=== PATIENT | female | born 1985 | race African-American/Black ===

== ENCOUNTER → 2016-12-31 | Outpatient (CLI) | payer OTHER ==
[~2016-12-31] MED LIST: ACETAMINOPHEN PO; ATARAX25 MG PO; ATIVAN0.5 MG PO; ATIVAN1 MG PO; CIPROFLOXACIN500 MG PO; DAYPRO600 M1 PO; DIPHENHYDRAMINE25 MG PO; DOXYCYCLINE100 MG PO; DURAGESIC25 MCG/HR TD; Duragesic 25 M25 MCG T; Duragesic 50 M50 MCG T; ELIMITE 5%60 GM T; FLEXERIL5 MG PO; HYDROCODONE BIT1 T11 PO; IBU-6600 MG PO; IBU800 MG PO; IBUPROFEN600 MG PO; KEFLEX500 MG PO; LEVOFLOXACIN500 MG PO; MACROBID100 M1 PO; MEDROL DOSEPAK4 MG PO; METHADONE5 MG PO; MIDRIN (DURADR1 CAP PO; MOBIC7.5 MG PO; MOTRIN600 MG PO; MOTRIN800 MG PO; Motrin,Rufen800 MG PO; OXYCODONE HCL5 MG PO; OXYCODONE5 M1 PO; OXYCONTIN10 MG PO; PERI-COLACE 501 TAB PO; PREDNISONE10 MG PO; PREDNISONE5 MG PO; PROAIR HFA8.5 GM IH; PROAIR RESPICL90 MCG PO; Phenergan25 MG PO; ROBAXIN750 MG PO; ROBITUSSIN AC 110 ML PO; ROXICODONE15 MG PO; SEROQUEL25 MG PO; SEROQUEL50 MG PO; VISTARIL25 M1 PO; ZITHROMAX250 MG PO; ZOFRAN4 MG PO; ZOLOFT50 MG PO; Zofran4 MG PO; [UNRECOGNIZED DRUG - OTHER] PO
== END ==
LOC: RAD 19:12
DX: R05 Cough (principal); J98.11 Atelectasis; R09.89 Other specified symptoms and signs involving the circulatory and respiratory systems

== ENCOUNTER 2017-07-11 18:41 | Inpatient (IN) | payer OTHER ==
[~2017-07-11] VITALS: Ht 170.1 cm; Wt 67.6 kg
--- NOTE | ~2017-07-11 | O ---
[place], [place] OPERATIVE NOTE NAME: KYLAH SCHWARTZ [facility] #: [id number] UNIT #: [id number] ROOM: 416 DOCTOR: DAVID RYAN MD BIRTHDATE: [birth year] DOS: 07/12/2017 PREOPERATIVE DIAGNOSIS: Acute appendicitis. POSTOPERATIVE DIAGNOSIS: Acute appendicitis. PROCEDURE: Laparoscopic appendectomy. SURGEON: David Ryan MD PUSH CONNECTOR ASSEMBLER: FRANCISCO. ANESTHESIA: GET. INDICATIONS: This is a 31-year-old -Stateless lady who was admitted with right lower quadrant abdominal pain and a CAT scan that revealed acute appendicitis. It was decided to take the patient to the operating room for the above-mentioned procedure. The procedure and its complications were explained to the patient in detail preoperatively. Complications that were discussed included, but were not limited to bleeding, infection, hematoma/seroma/abscess formation, formation, prolonged postoperative pain, damage vital structures and incisional hernia formation. She agreed to proceed. DESCRIPTION OF PROCEDURE: After identifying the patient, the patient was brought to the operating suite and laid in the supine position. After time-out procedure was called, general anesthesia was administered and the parts were then painted and draped in the usual sterile fashion. Prior to painting and draping, a Scott catheter was inserted into the urinary bladder and the left upper extremity was stuck to the patient's side. Thereafter, an incision was made below the umbilicus in a transverse fashion. The skin and the subcutaneous tissue were incised. The fascia was incised and 2 stay sutures were taken on either side. The peritoneum was opened and a 12-mm Juan David port was introduced into the peritoneal cavity. A pneumoperitoneum was created. Under direct vision, a left lower quadrant incision of 10 mm and suprapubic incision of 5 mm was made and appropriate size ports were introduced into the peritoneal cavity. The patient was placed in a Trendelenburg, right side up position. The appendix was found to be acute inflamed and attached with inflammatory adhesions to the distal ileum and also to the right fallopian tube as well as the right side of the uterine ligament. The appendix was carefully dissected away from the structures and after the base was identified, it was stapled across with the help of an Endo-ESTEBAN stapler. It was then placed in an Endo-ESTEBAN bag and removed from the peritoneal cavity and sent for histopathological diagnosis. Thereafter, hemostasis was confirmed and sheath of intercede was placed for hemostasis as well as to decrease the possibility of adhesions in the future. A note should be made that at this point, I also had Dr. Golden Perez from [employer] coming in order for him to look at the pelvic anatomy and make sure that the uterine ligament, the right lobe and pelvic female pelvic structures were within normal limits. After hemostasis was confirmed again, the suprapubic and the left lower quadrant ports were removed and there was no bleeding seen. The umbilical port was removed and pneumoperitoneum was decompressed. Thereafter, [place], [place] OPERATIVE NOTE NAME: KYLAH SCHWARTZ UNIT #: [id number] ROOM: [facility] DOCTOR: DAVID RYAN MD BIRTHDATE: [birth year] the fascial defect was approximated with the help of 0 Vicryl in a [id number] fashion and the stay sutures were tied together as well. The skin edges were infiltrated with 1% plain lidocaine and approximated with the help of 4-0 Vicryl in a subcuticular running fashion. Dressings were placed in all the four incisions. The patient tolerated the procedure well. Blood loss was less than 100 mL. She was extubated uneventfully and the Scott catheter was removed as well in the operating room. She was then taken to the recovery room in stable fashion. There were no complications. Dr. David Ryan, the attending surgeon, was present throughout the operating case. David Ryan MD CM:OPRECORD:OPERATIVE NOTE [id number] DAVID RYAN MD 07/12/17 1110 interface
[2017-07-11 18:52] VITALS: BP 119/78
[2017-07-11 19:14] LABS: BILIRUBIN NEGATIVE (NEGATIVE); BLOOD 3+ (NEGATIVE); CLARITY CLEAR (CLEAR); COLOR YELLOW (YELLOW); GLUCOSE NEGATIVE (NEGATIVE); KETONE NEGATIVE (NEGATIVE); LEUKO ESTERASE NEGATIVE (NEGATIVE); NITRITE NEGATIVE (NEGATIVE); SPECIFIC GRAVITY <= 1.005 (1.005-1.030)
[2017-07-11 19:24] LABS: BACTERIA TRACE; RBC 31-40 rbc/hpf (0-2)
[2017-07-11 19:49] LABS: BASO % 0.3 % (0.0-1.0); EOS # 0.2 10*3/uL (0.0-0.4); EOS % 1.4 % (1.0-4.0); HEMATOCRIT 40.4 % (37.0-47.0); HEMOGLOBIN 13.7 g/dl (12.0-16.0); LYMPH # 2.6 10*3/uL (1.3-4.4); LYMPH % 18.8 % (27.0-41.0); MEAN CELL VOLUME 91.4 fl (81.0-99.0); MEAN CORPUSCULAR HGB CONC 33.9 g/dl (33.0-37.0); MEAN PLATELET VOLUME 10.6 fl (9.6-12.3); MONO # 0.8 10*3/uL (0.1-1.0); MONO % 5.5 % (3.0-9.0); NEUT # 10.4 10*3/uL (2.3-7.9); NEUT % 73.7 % (47.0-73.0); PLATELET COUNT AUTOMATED 293 10*3/uL (130-400); RED BLOOD COUNT 4.42 10*6/uL (4.10-5.10); RED CELL DISTRI WIDTH 12.1 % (0-14.5); WHITE BLOOD COUNT 14.1 10*3/uL (4.8-10.8)
[2017-07-11 20:06] LABS: ALBUMIN 3.6 gm/dl (3.1-4.5); ALKALINE PHOSPHATASE 117 U/L (45-117); BUN 6 mg/dl (7-24); CHLORIDE 103 mmol/L (98-107); CREATININE 0.87 mg/dL (0.55-1.02); LIPASE 78 U/L (73-393); MAGNESIUM 2.4 mg/dL (1.5-2.1); POTASSIUM 3.7 mmol/L (3.5-5.1); SGOT/AST 19 IU/L (3-35); SGPT/ALT 13 U/L (12-78); SODIUM 135 mmol/L (136-145); TOTAL PROTEIN 8.9 gm/dL (6.4-8.2)
[2017-07-11 20:07] LABS: TROPONIN I < 0.015 ng/ml (<0.045)
--- NOTE | 2017-07-11 20:26 | NUR ---
PT POSITIONED FOR COMFORT AWAITING ALL RESULTS FOR ADDITIONAL PLAN OF CARE,SAFETY PRECAUTIONS INTACT AND CALL LIGHT WITHIN REACH.
--- NOTE | 2017-07-11 20:51 | NUR ---
MILD PAIN RELIEF WITH TORADOL.
--- NOTE | 2017-07-11 21:50 | NUR ---
PT STATING PAIN @ AN 8 ON 1-10 SCALE PRIOR TO MORPHINE ADMINISTRATION.
[2017-07-11 21:55] VITALS: BP 116/76
--- NOTE | 2017-07-11 22:03 | NUR ---
PT WITH REDNESS AND MILD EDEMA NOTED ABOVE IV SITE WHERE MORPHINE ADMINISTERED AND IV ROCEPHIN INFUSING,PT DENIES ITCHING/BURNING RESPIRATORY DIFFICULTIES, IV SITE FLUSHED AND ROCEPHIN STOPPED TEMPORARILY @ THIS TIME UNTIL REEVAL OF SITE PER BENNIE SEGURA PA-C. PAIN RELIEF NOTED WITH MORPHINE.
--- NOTE | 2017-07-11 23:20 | NUR ---
ALL S/S LFT IV SITE RESOLVED WITH ROCEPHIN COMPLETED CHARTED.
--- NOTE | 2017-07-11 23:48 | NUR ---
A 31, admitted to , under the services of SAADIA Forbes DO with a diagnosis of SEPSIS, AC APPENDICITIS, PNEUMONITIS. Chief complaint is RLQ ABD PAIN, COUGH. Patient arrived via ambulatory from ER. Monitor applied. Initial assessment completed. Vital signs taken and recorded. SAADIA FORBES DO notified of admission to the unit. Orders received. See assessment for past medical history, medications and allergies. Patient and/or family oriented to unit. [facility] reviewed. Clothing/patient valuable form completed. JOSE ANGEL VIRGEN
[2017-07-12] VITALS (11 sets, daily range): BP systolic 86–132; BP diastolic 40–85
--- NOTE | 2017-07-12 | NUR ---
DR. HANEY NOTIFIED OF NEW CONSULT. ORDER GIVEN FOR NPO. HE WILL SEE PT IN AM.
[2017-07-12] MEDS ORDERED: LYRICA50 M1 PO (00:07)
[2017-07-12] MEDS ORDERED: CYMBALTA20 M1 PO (00:08)
--- NOTE | 2017-07-12 00:15 | NUR ---
DR. CALLES NOTIFIED OF PT ADMISSION TO FLOOR AND MED LIST UPDATED. N.O. RCVD FOR MORPHINE IVP 4MG EVERY 2 HOURS PRN ABD PAIN, NS BOLUS, NS @ 125MLHR.
--- NOTE | 2017-07-12 02:00 | NUR ---
PRN MORPHINE EFFECTIVE FOR PAIN RELIEF. PT RESTING QUIETLY IN BED AT THIS TIME.
[2017-07-12 05:54] LABS: BASO % 0.3 % (0.0-1.0); EOS # 0.3 10*3/uL (0.0-0.4); EOS % 2.6 % (1.0-4.0); HEMATOCRIT 36.9 % (37.0-47.0); HEMOGLOBIN 12.6 g/dl (12.0-16.0); LYMPH # 1.8 10*3/uL (1.3-4.4); MEAN CELL VOLUME 92.5 fl (81.0-99.0); MEAN CORPUSCULAR HGB 31.6 pg (27.0-31.0); MEAN CORPUSCULAR HGB CONC 34.1 g/dl (33.0-37.0); MEAN PLATELET VOLUME 10.5 fl (9.6-12.3); MONO % 8.8 % (3.0-9.0); NEUT # 8.2 10*3/uL (2.3-7.9); PLATELET COUNT AUTOMATED 241 10*3/uL (130-400); RED BLOOD COUNT 3.99 10*6/uL (4.10-5.10); RED CELL DISTRI WIDTH 12.2 % (0-14.5); WHITE BLOOD COUNT 11.3 10*3/uL (4.8-10.8)
[2017-07-12 06:06] LABS: ALBUMIN 2.7 gm/dl (3.1-4.5); ALKALINE PHOSPHATASE 85 U/L (45-117); BUN 6 mg/dl (7-24); CHLORIDE 109 mmol/L (98-107); CHOLESTEROL 110 mg/dL (<200); CREATININE 0.84 mg/dL (0.55-1.02); FREE T4 1.15 ng/dl (0.76-1.46); HDL CHOLESTEROL 35 mg/dl (40-60); LDL CHOLESTEROL 53 mg/dL (9-159); MAGNESIUM 2.1 mg/dL (1.5-2.1); PHOSPHOROUS 3.6 mg/dL (2.5-4.9); POTASSIUM 3.9 mmol/L (3.5-5.1); SGOT/AST 14 IU/L (3-35); SGPT/ALT 8 U/L (12-78); SODIUM 140 mmol/L (136-145); TOTAL PROTEIN 6.6 gm/dL (6.4-8.2); TRIGLYCERIDES 110 mg/dl (<150); VLDL CHOLESTEROL 22 mg/dL (6-40)
[2017-07-12 06:18] LABS: ACT PARTIAL THROMBO TIME 28.9 SECONDS (20.8-31.5)
--- NOTE | 2017-07-12 08:30 | NUR ---
Monogram Technician in to talk to patient. Patient states lives at [address] with HER FIANCE. There are 15 steps in the home. Physician: ORESTES HERNANDEZ Pharmacy: [facility] Home health services: NONE Patient's level of ADLs: INDEPENDENT Patient has working utilities: YES DME: NONE Follow-up physician's appointment after d/c: WILL BE MADE PRIOR TO DC Does patient want to access PORTAL?: Discharge plan HOME. LEYLA VALDEZ
--- NOTE | 2017-07-12 10:35 | NUR ---
PT. C/O ABD PAIN/DISCOMFORT REQUESTING SOMETHING FOR PAIN. PT. RECIEVED FENTANYL 50 MCG IV FOR PAIN AND REGLAN 10 MG IV FOR NAUSEA PER . ORDERS WILL CONTINUE TO MONITOR PT.
--- NOTE | 2017-07-12 10:42 | NUR ---
PT. STILL C/O ABD PAIN/DISCOMFORTING RATING 10/10 ON PAIN SCALE. PT. RECIEVED SECOND DOSE OF FENTANYL 50 MCG IV FOR PAIN. PT.'S VITAL SIGNS REMAIN STABLE. WILL CONTINUE TO MONITOR PT.
--- NOTE | 2017-07-12 12:44 | NUR ---
MEDICATED WITH ONE TAB VICODIN FOR COMPLAINTS OF ABDOMINAL PAIN. RATES PAIN A 10 ON A PAIN SCALE OF 1-10.
--- NOTE | 2017-07-12 13:49 | NUR ---
VOICES PAIN MED WAS EFFECTIVE.
--- NOTE | 2017-07-12 16:52 | NUR ---
MEDICATED WITH NORCO ORDERED FOR COMPLAINTS OF ABDOMINAL PAIN. RATES PAIN A 10 ON A PAIN SCALE OF 1-10.
--- NOTE | 2017-07-12 17:38 | NUR ---
MEDICATED WITH ZOFRAN FOR COMPLAINTS OF NAUSEA. RATES PAIN A 7 ON A PAIN SCALE OF 1-10.
--- NOTE | 2017-07-12 20:54 | NUR ---
DR. ROUSSEAU NOTIFIED OF PT REQUEST FOR TORADOL. DR. MENA PUT IN ORDER FOR TORADOL.
--- NOTE | 2017-07-12 22:00 | NUR ---
PT STATES THAT TORADOL WAS SOMEWHAT EFFECTIVE FOR PAIN RELIEF. PT ADVISED THAT IT WAS A ONE TIME ORDER AND PT TEACHING GIVEN. PT VERBALIZES UNDERSTANDING.
[2017-07-13] VITALS: BP 108/56
--- NOTE | 2017-07-13 00:30 | NUR ---
PT RESTING QUIETLY IN BED WITH EYES CLOSED. PRN NORCO EFFECTIVE FOR PAIN RELIEF. NO S/S OF DISTRESS NOTED.
--- NOTE | 2017-07-13 05:01 | NUR ---
24 HR chart check completed.
--- NOTE | 2017-07-13 06:30 | NUR ---
PT REFUSED LABS THIS AM.
[2017-07-13 08:00] VITALS: BP 100/60
[2017-07-13] MEDS ORDERED: VITAMIN D-32000 UNI1 PO (09:08)
[2017-07-13] MEDS ORDERED: B12,B-12,B 12500 MC1 PO (09:08)
[2017-07-13] MEDS ORDERED: Motrin,Rufen800 MG PO (09:10)
--- NOTE | 2017-07-13 10:39 | NUR ---
Discharge instructions reviewed with patient/family. Patient receptive and verbalizes understanding. Follow-up care arranged. Written instructions given to patient/family. TOM PULIDO
== END 2017-07-13 10:35 | disposition home or self-care (01) | DRG 853 ==
LOC: ED 18:41 → EDHOLD 22:57 → 4E 22:57
PROVIDERS: Hospitalist; Physician Assistant; ADMIT Internal Medicine
PROC: 0DTJ4ZZ Resection of Appendix, Percutaneous Endoscopic Approach (ICD-10-PCS; principal; 2017-07-12)
DX: A41.9 Sepsis, unspecified organism (principal); J18.9 Pneumonia, unspecified organism; E43 Unspecified severe protein-calorie malnutrition; K35.80 Unspecified acute appendicitis; N39.0 Urinary tract infection, site not specified; J45.909 Unspecified asthma, uncomplicated; R65.20 Severe sepsis without septic shock; F41.9 Anxiety disorder, unspecified; E55.9 Vitamin D deficiency, unspecified; E53.8 Deficiency of other specified B group vitamins; Z85.72 Personal history of non-Hodgkin lymphomas; Z72.0 Tobacco use; Z68.23 Body mass index [BMI] 23.0-23.9, adult; Z80.8 Family history of malignant neoplasm of other organs or systems; Z83.3 Family history of diabetes mellitus; Z82.49 Family history of ischemic heart disease and other diseases of the circulatory system; Z79.899 Other long term (current) drug therapy

== ENCOUNTER → 2017-07-19 | Outpatient (CLI) | payer OTHER ==
[~2017-07-19] MED LIST changes: +B12,B-12,B 12500 MC1 PO; +CYMBALTA20 M1 PO; +LYRICA50 M1 PO; +VITAMIN D-32000 UNI1 PO
== END | disposition home or self-care (01) ==
LOC: RAD 13:22
DX: K59.00 Constipation, unspecified (principal); R31.9 Hematuria, unspecified; R10.31 Right lower quadrant pain; R10.32 Left lower quadrant pain; R11.0 Nausea

== ENCOUNTER 2017-08-11 15:57 | Emergency (ER) | payer OTHER ==
[~2017-08-11] VITALS: Ht 170.1 cm; Wt 65.3 kg
[2017-08-11 16:47] LABS: BASO % 0.5 % (0.0-1.0); EOS # 0.1 10*3/uL (0.0-0.4); EOS % 1.2 % (1.0-4.0); HEMATOCRIT 39.5 % (37.0-47.0); LYMPH # 2.1 10*3/uL (1.3-4.4); LYMPH % 25.5 % (27.0-41.0); MEAN CELL VOLUME 90.8 fl (81.0-99.0); MEAN CORPUSCULAR HGB 29.9 pg (27.0-31.0); MEAN CORPUSCULAR HGB CONC 32.9 g/dl (33.0-37.0); MEAN PLATELET VOLUME 10.4 fl (9.6-12.3); MONO # 0.4 10*3/uL (0.1-1.0); MONO % 4.5 % (3.0-9.0); NEUT # 5.6 10*3/uL (2.3-7.9); NEUT % 68.1 % (47.0-73.0); PLATELET COUNT AUTOMATED 259 10*3/uL (130-400); RED BLOOD COUNT 4.35 10*6/uL (4.10-5.10); RED CELL DISTRI WIDTH 13.5 % (0-14.5); WHITE BLOOD COUNT 8.2 10*3/uL (4.8-10.8)
[2017-08-11 17:03] LABS: ALBUMIN 3.9 gm/dl (3.1-4.5); ALKALINE PHOSPHATASE 131 U/L (45-117); BUN 9 mg/dl (7-24); CHLORIDE 106 mmol/L (98-107); CREATININE 0.79 mg/dL (0.55-1.02); POTASSIUM 4.1 mmol/L (3.5-5.1); SGOT/AST 11 IU/L (3-35); SGPT/ALT 13 U/L (12-78); SODIUM 137 mmol/L (136-145); TOTAL PROTEIN 8.4 gm/dL (6.4-8.2)
[2017-08-11] MEDS ORDERED: ZITHROMAX250 MG PO (17:37)
[2017-08-11] MEDS ORDERED: DELTASONE20 M1 PO (17:37)
[2017-08-11] MEDS ORDERED: VENTOLIN 02.5 MG/3 M INH (17:37)
== END 2017-08-11 17:46 | disposition home or self-care (01) ==
LOC: ED 15:57
PROVIDERS: Physician Assistant
DX: J40 Bronchitis, not specified as acute or chronic (principal); F17.200 Nicotine dependence, unspecified, uncomplicated; Z79.899 Other long term (current) drug therapy

== ENCOUNTER 2018-09-07 19:58 | Emergency (ER) | payer OTHER ==
[~2018-09-07] VITALS: Ht 170.1 cm; Wt 68.0 kg
[~2018-09-07 19:58] MED LIST changes: +DELTASONE20 M1 PO; +VENTOLIN 02.5 MG/3 M INH
[2018-09-07] MEDS ORDERED: CYMBALTA20 M1 PO (20:10)
[2018-09-07 20:26] LABS: BASO % 0.3 % (0.0-1.0); EOS # 0.2 10*3/uL (0.0-0.4); HEMATOCRIT 43.3 % (37.0-47.0); HEMOGLOBIN 14.9 g/dl (12.0-16.0); LYMPH # 2.5 10*3/uL (1.3-4.4); LYMPH % 25.8 % (27.0-41.0); MEAN CELL VOLUME 92.1 fl (81.0-99.0); MEAN CORPUSCULAR HGB 31.7 pg (27.0-31.0); MEAN CORPUSCULAR HGB CONC 34.4 g/dl (33.0-37.0); MEAN PLATELET VOLUME 10.1 fl (9.6-12.3); MONO # 0.4 10*3/uL (0.1-1.0); MONO % 4.4 % (3.0-9.0); NEUT # 6.5 10*3/uL (2.3-7.9); NEUT % 67.3 % (47.0-73.0); PLATELET COUNT AUTOMATED 234 10*3/uL (130-400); RED CELL DISTRI WIDTH 11.9 % (0-14.5); WHITE BLOOD COUNT 9.7 10*3/uL (4.8-10.8)
[2018-09-07 20:37] LABS: BILIRUBIN NEGATIVE (NEGATIVE); BLOOD 3+ (NEGATIVE); CLARITY SL CLOUDY (CLEAR); COLOR YELLOW (YELLOW); GLUCOSE NEGATIVE (NEGATIVE); KETONE NEGATIVE (NEGATIVE); LEUKO ESTERASE 1+ (NEGATIVE); NITRITE NEGATIVE (NEGATIVE); SPECIFIC GRAVITY 1.025 (1.005-1.030); UROBILINOGEN 0.2 E.U./dl (0.2-1.0)
[2018-09-07 20:42] LABS: ALBUMIN 3.8 gm/dl (3.1-4.5); ALKALINE PHOSPHATASE 119 U/L (45-117); BUN 6 mg/dl (7-24); CHLORIDE 106 mmol/L (98-107); CREATININE 0.82 mg/dL (0.55-1.02); POTASSIUM 4.1 mmol/L (3.5-5.1); SGOT/AST 12 IU/L (3-35); SGPT/ALT 16 U/L (12-78); SODIUM 138 mmol/L (136-145); TOTAL PROTEIN 7.6 gm/dL (6.4-8.2)
[2018-09-07 21:00] LABS: BACTERIA 2+; EPITHELIAL CELLS 31-40; RBC 21-30 rbc/hpf (0-2)
== END 2018-09-07 22:00 | disposition left against medical advice (07) ==
LOC: ED 19:58
PROVIDERS: Student in an Organized Health Care Education/Training Program
DX: N39.0 Urinary tract infection, site not specified (principal); F17.200 Nicotine dependence, unspecified, uncomplicated; Z79.899 Other long term (current) drug therapy

== ENCOUNTER → 2019-02-15 | Outpatient (CLI) | payer OTHER ==
[~2019-02-15] MED LIST changes: +CEFUROXIME AXE500 MG PO; +NAPROSYN500 MG PO
== END | disposition home or self-care (01) ==
LOC: MRI 07:50
DX: S93.492A Sprain of other ligament of left ankle, initial encounter (principal); X58.XXXA Exposure to other specified factors, initial encounter; Y93.89 Activity, other specified; Y92.89 Other specified places as the place of occurrence of the external cause; Y99.8 Other external cause status

== ENCOUNTER → 2019-09-29 | Outpatient (CLI) | payer OTHER ==
[2019-09-29 21:00] LABS: BASO % 0.2 % (0.0-1.0); EOS # 0.2 10*3/uL (0.0-0.4); EOS % 2.4 % (1.0-4.0); HEMOGLOBIN 13.6 g/dl (12.0-16.0); LYMPH # 3.1 10*3/uL (1.3-4.4); LYMPH % 31.5 % (27.0-41.0); MEAN CELL VOLUME 92.8 fl (81.0-99.0); MEAN CORPUSCULAR HGB 30.8 pg (27.0-31.0); MEAN CORPUSCULAR HGB CONC 33.2 g/dl (33.0-37.0); MEAN PLATELET VOLUME 10.7 fl (9.6-12.3); MONO # 0.5 10*3/uL (0.1-1.0); MONO % 5.3 % (3.0-9.0); NEUT # 5.9 10*3/uL (2.3-7.9); NEUT % 60.3 % (47.0-73.0); PLATELET COUNT AUTOMATED 244 10*3/uL (130-400); RED BLOOD COUNT 4.42 10*6/uL (4.10-5.10); RED CELL DISTRI WIDTH 12.6 % (0-14.5); WHITE BLOOD COUNT 9.8 10*3/uL (4.8-10.8)
[2019-09-29 21:16] LABS: ALBUMIN 3.6 gm/dl (3.1-4.5); ALKALINE PHOSPHATASE 117 U/L (45-117); BUN 6 mg/dl (7-24); CHLORIDE 108 mmol/L (98-107); CREATININE 1.03 mg/dL (0.55-1.02); POTASSIUM 3.6 mmol/L (3.5-5.1); SGOT/AST 28 IU/L (3-35); SGPT/ALT 25 U/L (12-78); SODIUM 139 mmol/L (136-145); TOTAL PROTEIN 7.6 gm/dL (6.4-8.2)
== END | disposition home or self-care (01) ==
LOC: LAB 20:40
PROVIDERS: Internal Medicine Hematology & Oncology
DX: C81.90 Hodgkin lymphoma, unspecified, unspecified site (principal); J98.4 Other disorders of lung

== ENCOUNTER → 2019-12-21 | Outpatient (CLI) | payer OTHER | END | disposition home or self-care (01) | LOC: LAB 15:58 | DX: D72.820 Lymphocytosis (symptomatic) (principal) ==

== ENCOUNTER → 2019-12-28 | Outpatient (CLI) | payer OTHER | END | disposition home or self-care (01) | LOC: RESCLI 15:39 → COVID19 15:39 | DX: R05 Cough (principal); R06.00 Dyspnea, unspecified; R07.9 Chest pain, unspecified ==

== ENCOUNTER 2020-03-14 11:40 | Observation (INO) | payer OTHER ==
[~2020-03-14] VITALS: Ht 175.2 cm; Wt 78.0 kg
[2020-03-14 11:46] VITALS: BP 135/86
[2020-03-14 12:55] LABS: BASO % 0.3 % (0.0-1.0); EOS % 0.3 % (1.0-4.0); HEMATOCRIT 41.1 % (37.0-47.0); LYMPH # 1.6 10*3/uL (1.3-4.4); MEAN CELL VOLUME 90.1 fl (81.0-99.0); MEAN CORPUSCULAR HGB 30.3 pg (27.0-31.0); MEAN CORPUSCULAR HGB CONC 33.6 g/dl (33.0-37.0); MEAN PLATELET VOLUME 10.6 fl (9.6-12.3); MONO # 0.4 10*3/uL (0.1-1.0); MONO % 3.3 % (3.0-9.0); NEUT # 8.6 10*3/uL (2.3-7.9); NEUT % 80.8 % (47.0-73.0); PLATELET COUNT AUTOMATED 235 10*3/uL (130-400); RED BLOOD COUNT 4.56 10*6/uL (4.10-5.10); RED CELL DISTRI WIDTH 12.7 % (0-14.5); WHITE BLOOD COUNT 10.6 10*3/uL (4.8-10.8)
[2020-03-14 13:45] LABS: ALBUMIN 3.4 gm/dl (3.1-4.5); ALKALINE PHOSPHATASE 113 U/L (45-117); BUN 10 mg/dl (7-24); CHLORIDE 107 mmol/L (98-107); LIPASE 154 U/L (73-393); POTASSIUM 3.8 mmol/L (3.5-5.1); SGOT/AST 26 IU/L (3-35); SGPT/ALT 47 U/L (12-78); SODIUM 137 mmol/L (136-145); TOTAL PROTEIN 7.9 gm/dL (6.4-8.2)
[2020-03-14 13:54] LABS: B-hCG (QUALITATIVE) NEGATIVE (NEGATIVE)
[2020-03-14 15:16] LABS: BILIRUBIN 1+ (NEGATIVE); BLOOD 3+ (NEGATIVE); CLARITY SL CLOUDY (CLEAR); COLOR YELLOW (YELLOW); GLUCOSE NEGATIVE (NEGATIVE); KETONE NEGATIVE (NEGATIVE); LEUKO ESTERASE 1+ (NEGATIVE); NITRITE NEGATIVE (NEGATIVE); SPECIFIC GRAVITY 1.015 (1.005-1.030); UROBILINOGEN 0.2 E.U./dl (0.2-1.0)
[2020-03-14 15:17] LABS: BACTERIA 1+; RBC 16-20 rbc/hpf (0-2)
[2020-03-14 15:30] VITALS: BP 142/78
[2020-03-14 16:00] VITALS: BP 109/68
--- NOTE | 2020-03-14 16:15 | NUR ---
Time: 1614 A 34 year old FEMALE admitted to 4E under services of HERSON PORTILLO DO. Pt. arrived via NONE from ER. Chief complaint: NAUSEA AND VOMITING. HUE STACK
[2020-03-14] MEDS ORDERED: METHADONE10 MG/1 M1 PO (16:17)
--- NOTE | 2020-03-14 16:34 | NUR ---
PT C/O OF NAUSEA PRN ZOFRAN GIVEN PER ORDER
--- NOTE | 2020-03-14 17:05 | NUR ---
PT STILL COMPLIANING, OF NAUSEA AND EMESIS X1 NOTIFIED
--- NOTE | 2020-03-14 17:24 | NUR ---
ONE TIME DOSE OF RELGAN GIVEN FOR VOMITING
[2020-03-14 20:00] VITALS: BP 115/76
--- NOTE | 2020-03-14 21:04 | NUR ---
PATIENT UNABLE TO TOLERATE CT PREP. DR PEREZ NOTIFIED ORDER FOR PHENERGAN RECEIVED AND PATIENT WAS MEDICATED.
--- NOTE | 2020-03-14 22:10 | NUR ---
PATIENT DRINKING CT PREP SLOWLY. WILL CONTINUE TO MONITOR.
--- NOTE | 2020-03-14 22:30 | NUR ---
CT PREP COMPLETED. NOTIFIED CT DEPT.
--- NOTE | 2020-03-14 22:44 | NUR ---
PATIENT HAD EMESIS AFTER DRINKING CT PREP. CT DEPT NOTIFIED
--- NOTE | 2020-03-14 22:49 | NUR ---
PATIENT TRANSPORTED DOWN FOR CT SCAN.
[2020-03-14 23:39] VITALS: BP 119/70
--- NOTE | 2020-03-14 23:51 | NUR ---
PATIENT MEDICATED WITH RESTORIL PER PRN ORDER FOR INABILITY TO SLEEP. SEE EMAR. REINFORCED USE OF CALL LIGHT.
--- NOTE | 2020-03-15 01:56 | NUR ---
24 HR chart check completed.
--- NOTE | 2020-03-15 06:47 | NUR ---
NOTIFIED THAT PATIENT IS REFUSING AM LABS.
[2020-03-15 08:00] VITALS: BP 103/57
--- NOTE | 2020-03-15 09:00 | NUR ---
Independent Jeweler in to talk to patient. Patient states lives at home with daughter. There are 15 steps in the home. Physician: david marte [facility]acy: [facility] Home health services: none Patient's level of ADLs: INDEPENDENT Patient has working utilities: all working DME: none Follow-up physician's appointment after d/c: will be made by hospitalist nurse director upon discharge Does patient want to access PORTAL?: no Discharge plan discussed with patient, she states she lives at home with her daughter, she is independent in adls and ambulation, drives, she states she would be returning home when able and denies any home needs, she stated her mom will transport her home when discharged. WHITNEY CRUZ
[2020-03-15 12:00] VITALS: BP 112/90
[2020-03-15] MEDS ORDERED: ZOFRAN4 MG PO (12:42)
--- NOTE | 2020-03-15 13:57 | NUR ---
Discharge instructions reviewed with patient/family. Patient receptive and verbalizes understanding. Follow-up care arranged. Written instructions given to patient/family. FARTUN GAUTAM
== END 2020-03-15 13:57 | disposition home or self-care (01) ==
LOC: ED 11:40 → EDHOLD 15:24 → 4E 15:24
PROVIDERS: Emergency Medicine; ADMIT Internal Medicine
DX: R11.2 Nausea with vomiting, unspecified (principal); R00.1 Bradycardia, unspecified; R82.71 Bacteriuria; F41.9 Anxiety disorder, unspecified; R06.82 Tachypnea, not elsewhere classified; R73.9 Hyperglycemia, unspecified; F17.210 Nicotine dependence, cigarettes, uncomplicated

== ENCOUNTER 2021-03-15 22:19 | Emergency (ER) | payer OTHER ==
[~2021-03-15 22:19] MED LIST changes: +METHADONE10 MG/1 M1 PO
[2021-03-16] MEDS ORDERED: METHOCARBAMOL750 M1 PO (00:04)
[2021-03-16] MEDS ORDERED: NAPROSYN500 MG PO (00:04)
== END 2021-03-16 00:05 | disposition home or self-care (01) ==
LOC: ED 22:19
DX: S06.0X9A Concussion with loss of consciousness of unspecified duration, initial encounter (principal); S80.00XA Contusion of unspecified knee, initial encounter; R10.31 Right lower quadrant pain; M25.561 Pain in right knee; M25.562 Pain in left knee; F17.200 Nicotine dependence, unspecified, uncomplicated; Z79.899 Other long term (current) drug therapy; Z90.49 Acquired absence of other specified parts of digestive tract; V43.52XA Car driver injured in collision with other type car in traffic accident, initial encounter; Y93.I9 Activity, other involving external motion; Y92.488 Other paved roadways as the place of occurrence of the external cause; Y99.8 Other external cause status

== ENCOUNTER 2021-03-20 16:54 | Emergency (ER) | payer OTHER ==
[~2021-03-20] VITALS: Ht 170.1 cm; Wt 74.8 kg
[~2021-03-20 16:54] MED LIST changes: +METHOCARBAMOL750 M1 PO
[2021-03-20] MEDS ORDERED: PENICILLIN VK500 MG PO (17:16)
[2021-03-20] MEDS ORDERED: Motrin,Rufen800 MG PO (17:18)
== END 2021-03-20 17:53 | disposition home or self-care (01) ==
LOC: ED 16:54
DX: K08.89 Other specified disorders of teeth and supporting structures (principal); F17.200 Nicotine dependence, unspecified, uncomplicated; Z79.899 Other long term (current) drug therapy; Z90.49 Acquired absence of other specified parts of digestive tract

== ENCOUNTER 2021-05-29 20:38 | Emergency (ER) | payer OTHER ==
[~2021-05-29] VITALS: Ht 172.7 cm; Wt 68.0 kg
[~2021-05-29 20:38] MED LIST changes: +PENICILLIN VK500 MG PO
[2021-05-29 22:50] LABS: BASO % 0.3 % (0.0-1.0); EOS # 0.1 10*3/uL (0.0-0.4); EOS % 0.4 % (1.0-4.0); HEMATOCRIT 45.4 % (37.0-47.0); LYMPH # 2.3 10*3/uL (1.3-4.4); LYMPH % 16.2 % (27.0-41.0); MEAN CELL VOLUME 92.7 fl (81.0-99.0); MEAN CORPUSCULAR HGB 31.4 pg (27.0-31.0); MEAN CORPUSCULAR HGB CONC 33.9 g/dl (33.0-37.0); MEAN PLATELET VOLUME 10.9 fl (9.6-12.3); MONO # 0.5 10*3/uL (0.1-1.0); MONO % 3.5 % (3.0-9.0); NEUT # 11.3 10*3/uL (2.3-7.9); NEUT % 79.3 % (47.0-73.0); PLATELET COUNT AUTOMATED 240 10*3/uL (130-400); RED CELL DISTRI WIDTH 12.2 % (0-14.5); WHITE BLOOD COUNT 14.3 10*3/uL (4.8-10.8)
[2021-05-29 23:19] LABS: ALBUMIN 4.3 gm/dl (3.1-4.5); ALKALINE PHOSPHATASE 119 U/L (45-117); BUN 9 mg/dl (7-24); CHLORIDE 109 mmol/L (98-107); CREATININE 0.91 mg/dL (0.55-1.02); LIPASE 171 U/L (73-393); POTASSIUM 3.3 mmol/L (3.5-5.1); SGOT/AST 11 IU/L (3-35); SGPT/ALT 14 U/L (12-78); SODIUM 139 mmol/L (136-145); TOTAL PROTEIN 8.4 gm/dL (6.4-8.2)
[2021-05-30 00:02] LABS: BILIRUBIN Negative (Negative); BLOOD 2+ (Negative); CLARITY Cloudy (Clear); COLOR Yellow (Yellow); GLUCOSE Negative (Negative); KETONE Trace (Negative); LEUKO ESTERASE Negative (Negative); NITRITE Negative (Negative); SPECIFIC GRAVITY 1.015 (1.001-1.030)
[2021-05-30 00:13] LABS: URINE AMPHETAMINES < 1000 (1000ng/ml); URINE BARBITURATES < 200 (200ng/ml); URINE BENZODIAZEPINES < 200 (200ng/ml); URINE CANNABINOIDS (THC) > 50 (50ng/ml); URINE COCAINE < 300 (300ng/ml); URINE METHADONE > 300 (300ng/ml); URINE OPIATES < 300 (300ng/ml)
[2021-05-30 00:16] LABS: URINE PHENCYCLIDINE < 25 (25ng/ml)
[2021-05-30 00:18] LABS: BACTERIA 1+; EPITHELIAL CELLS TNTC
[2021-05-30 00:21] LABS: RBC 16-20 rbc/hpf (0-2)
[2021-05-30] MEDS ORDERED: PROMETHAZINE12.5 M5 PO (04:44)
== END 2021-05-30 04:56 | disposition home or self-care (01) ==
LOC: ED 20:38
PROVIDERS: Emergency Medicine
DX: R11.10 Vomiting, unspecified (principal); F17.200 Nicotine dependence, unspecified, uncomplicated; Z79.899 Other long term (current) drug therapy

== ENCOUNTER → 2021-10-08 | Outpatient (CLI) | payer OTHER ==
[~2021-10-08] MED LIST changes: +PROMETHAZINE12.5 M5 PO
== END | disposition home or self-care (01) ==
LOC: COVID19 15:51
PROVIDERS: ATTEND Internal Medicine
DX: Z11.52 Encounter for screening for COVID-19 (principal)

== ENCOUNTER → 2021-10-16 | Outpatient (CLI) | payer OTHER | LOC: CT 10-15 10:00 | PROVIDERS: ATTEND Internal Medicine | DX: C81.90 Hodgkin lymphoma, unspecified, unspecified site (principal); J98.4 Other disorders of lung ==

== ENCOUNTER → 2021-12-20 | Outpatient (CLI) | payer OTHER ==
[~2021-12-20] MED LIST changes: +NEXPLANON68 M2 IL
[2021-12-20 14:48] LABS: HEMATOCRIT 39.5 % (37.0-47.0); MEAN CELL VOLUME 90.4 fl (81.0-99.0); MEAN CORPUSCULAR HGB 31.8 pg (27.0-31.0); MEAN CORPUSCULAR HGB CONC 35.2 g/dl (33.0-37.0); MEAN PLATELET VOLUME 10.3 fl (9.6-12.3); RED BLOOD COUNT 4.37 10*6/uL (4.10-5.10); RED CELL DISTRI WIDTH 12.5 % (0-14.5); WHITE BLOOD COUNT 9.2 10*3/uL (4.8-10.8)
[2021-12-20 15:20] LABS: ALKALINE PHOSPHATASE 117 U/L (45-117); BUN 7 mg/dl (7-24); CHLORIDE 109 mmol/L (98-107); CHOLESTEROL 201 mg/dL (<200); CREATININE 0.95 mg/dL (0.55-1.02); FREE T4 0.82 ng/dl (0.76-1.46); LDL CHOLESTEROL 126 mg/dL (9-159); POTASSIUM 3.5 mmol/L (3.5-5.1); SGOT/AST 22 IU/L (3-35); SGPT/ALT 18 U/L (12-78); SODIUM 140 mmol/L (136-145); TOTAL PROTEIN 7.4 gm/dL (6.4-8.2); TRIGLYCERIDES 204 mg/dl (<150)
[2021-12-20 15:25] LABS: THYROID STIM HORMONE (HS) 0.925 uIU/ml (0.358-4.75)
[2021-12-20 16:12] LABS: VITAMIN D, 25-HYDROXY 8.3 ng/mL (30-100)
== END | disposition home or self-care (01) ==
LOC: LAB 14:15
PROVIDERS: ATTEND Family Medicine
DX: E55.9 Vitamin D deficiency, unspecified (principal); R00.0 Tachycardia, unspecified; R42 Dizziness and giddiness; R53.83 Other fatigue

== ENCOUNTER → 2022-05-20 | Outpatient (CLI) | payer OTHER ==
[2022-05-20 13:27] LABS: HEMATOCRIT 40.2 % (37.0-47.0); MEAN CELL VOLUME 92.2 fl (81.0-99.0); MEAN CORPUSCULAR HGB 32.3 pg (27.0-31.0); MEAN CORPUSCULAR HGB CONC 35.1 g/dl (33.0-37.0); MEAN PLATELET VOLUME 11.2 fl (9.6-12.3); RED BLOOD COUNT 4.36 10*6/uL (4.10-5.10); RED CELL DISTRI WIDTH 12.1 % (0-14.5); WHITE BLOOD COUNT 7.7 10*3/uL (4.8-10.8)
[2022-05-20 13:51] LABS: ALKALINE PHOSPHATASE 107 U/L (45-117); BUN 6 mg/dl (7-24); CHLORIDE 109 mmol/L (98-107); CHOLESTEROL 159 mg/dL (<200); CREATININE 0.96 mg/dL (0.55-1.02); LDL CHOLESTEROL 81 mg/dL (9-159); SGOT/AST 11 IU/L (3-35); SGPT/ALT 11 U/L (12-78); SODIUM 140 mmol/L (136-145); TRIGLYCERIDES 244 mg/dl (<150)
== END | disposition home or self-care (01) ==
LOC: LAB 12:37
PROVIDERS: ATTEND Family Medicine
DX: M79.672 Pain in left foot (principal); M79.671 Pain in right foot; E55.9 Vitamin D deficiency, unspecified; R53.83 Other fatigue; C81.90 Hodgkin lymphoma, unspecified, unspecified site; Z79.899 Other long term (current) drug therapy

== ENCOUNTER → 2022-06-18 | Outpatient (CLI) | payer OTHER | END | disposition home or self-care (01) | LOC: RAD 17:36 | PROVIDERS: ATTEND Family Medicine | DX: R07.9 Chest pain, unspecified (principal); R10.9 Unspecified abdominal pain ==

== ENCOUNTER → 2022-11-05 | Outpatient (CLI) | payer OTHER ==
[2022-11-05 16:38] LABS: HEMATOCRIT 41.4 % (37.0-47.0); MEAN CORPUSCULAR HGB 31.4 pg (27.0-31.0); MEAN CORPUSCULAR HGB CONC 34.5 g/dl (33.0-37.0); MEAN PLATELET VOLUME 10.5 fl (9.6-12.3); RED BLOOD COUNT 4.55 10*6/uL (4.10-5.10); RED CELL DISTRI WIDTH 12.3 % (0-14.5); WHITE BLOOD COUNT 7.8 10*3/uL (4.8-10.8)
[2022-11-05 16:57] LABS: ALKALINE PHOSPHATASE 93 U/L (46-116); CHLORIDE 104 mmol/L (98-107); CHOLESTEROL 177 mg/dL (<200); LDL CHOLESTEROL 106 mg/dL (9-159); POTASSIUM 3.6 mmol/L (3.4-5.1); TOTAL PROTEIN 7.3 gm/dL (6.0-8.0); TRIGLYCERIDES 201 mg/dl (<150)
[2022-11-05 17:00] LABS: BUN < 5 mg/dl (9-23); SGPT/ALT < 7 U/L (10-49)
== END | disposition home or self-care (01) ==
LOC: LAB 16:13
PROVIDERS: ATTEND Family Medicine
DX: E78.00 Pure hypercholesterolemia, unspecified (principal); E55.9 Vitamin D deficiency, unspecified; Z79.899 Other long term (current) drug therapy; R10.9 Unspecified abdominal pain

== ENCOUNTER → 2023-02-13 | Outpatient (CLI) | payer OTHER ==
[~2023-02-13] MED LIST changes: +NEURONTIN300 MG PO
[2023-02-13 09:04] LABS: HEMATOCRIT 40.7 % (37.0-47.0); MEAN CELL VOLUME 91.7 fl (81.0-99.0); MEAN CORPUSCULAR HGB 32.2 pg (27.0-31.0); MEAN CORPUSCULAR HGB CONC 35.1 g/dl (33.0-37.0); MEAN PLATELET VOLUME 9.9 fl (9.6-12.3); RED BLOOD COUNT 4.44 10*6/uL (4.10-5.10); RED CELL DISTRI WIDTH 12.9 % (0-14.5); WHITE BLOOD COUNT 7.6 10*3/uL (4.8-10.8)
[2023-02-13 10:00] LABS: ALKALINE PHOSPHATASE 110 U/L (46-116); BUN 9 mg/dl (9-23); CHLORIDE 103 mmol/L (98-107); CHOLESTEROL 187 mg/dL (<200); FREE T4 0.87 ng/dl (0.89-1.76); LDL CHOLESTEROL 130 mg/dL (9-159); LIPASE 27 U/L (12-53); POTASSIUM 3.6 mmol/L (3.4-5.1); SGPT/ALT 11 U/L (10-49); THYROID STIM HORMONE (HS) 0.783 uIU/ml (0.550-4.780); TOTAL PROTEIN 7.7 gm/dL (6.0-8.0); TRIGLYCERIDES 100 mg/dl (<150)
[2023-02-13 10:25] LABS: VITAMIN D, 25-HYDROXY 12.1 ng/mL (30-100)
== END | disposition home or self-care (01) ==
LOC: LAB 08:45
PROVIDERS: ATTEND Family Medicine
DX: G45.9 Transient cerebral ischemic attack, unspecified (principal); E55.9 Vitamin D deficiency, unspecified; K21.9 Gastro-esophageal reflux disease without esophagitis; R10.9 Unspecified abdominal pain; R53.83 Other fatigue

== ENCOUNTER → 2023-02-16 | Outpatient (CLI) | payer OTHER | END | disposition home or self-care (01) | LOC: RAD 15:30 → LAB 15:30 | PROVIDERS: ATTEND Family Medicine | DX: Z85.72 Personal history of non-Hodgkin lymphomas (principal); R06.02 Shortness of breath ==

== ENCOUNTER → 2023-05-27 | Outpatient (CLI) | payer OTHER | END | disposition home or self-care (01) | LOC: CT 00:32 | PROVIDERS: ATTEND Nurse Practitioner Family | DX: K42.9 Umbilical hernia without obstruction or gangrene (principal) ==

== ENCOUNTER 2023-07-17 13:01 | Emergency (ER) | payer OTHER ==
[~2023-07-17] VITALS: Wt 52.2 kg
[2023-07-17 15:50] LABS: ALKALINE PHOSPHATASE 103 U/L (46-116); CHLORIDE 108 mmol/L (98-107); LIPASE 35 U/L (12-53); POTASSIUM 3.9 mmol/L (3.4-5.1); TOTAL PROTEIN 8.1 gm/dL (6.0-8.0)
[2023-07-17 15:51] LABS: BUN < 5 mg/dl (9-23); SGPT/ALT < 7 U/L (10-49)
[2023-07-17] MEDS ORDERED: ONDANSETRON4 MG SL (16:46)
[2023-07-17] MEDS ORDERED: CIPRO500 MG PO (16:46)
[2023-07-17] MEDS ORDERED: MELOXICAM15 MG PO (16:46)
[2023-07-17] MEDS ORDERED: Phenergan25 MG PO (16:46)
== END 2023-07-17 17:22 | disposition home or self-care (01) ==
LOC: ED 13:01
PROVIDERS: Emergency Medicine
DX: R10.30 Lower abdominal pain, unspecified (principal); R11.2 Nausea with vomiting, unspecified; R19.7 Diarrhea, unspecified; Z90.49 Acquired absence of other specified parts of digestive tract; Z98.890 Other specified postprocedural states; F17.200 Nicotine dependence, unspecified, uncomplicated

== ENCOUNTER 2023-08-29 23:16 | Emergency (ER) | payer OTHER ==
[~2023-08-29] VITALS: Ht 170.1 cm; Wt 57.2 kg
[~2023-08-29 23:16] MED LIST changes: +CIPRO500 MG PO; +MELOXICAM15 MG PO; +ONDANSETRON4 MG SL
[2023-08-30 00:44] LABS: ALKALINE PHOSPHATASE 98 U/L (46-116); CHLORIDE 107 mmol/L (98-107); LIPASE 33 U/L (12-53); POTASSIUM 3.9 mmol/L (3.4-5.1); SGPT/ALT 10 U/L (5-49); TOTAL PROTEIN 7.5 gm/dL (6.0-8.0)
[2023-08-30 00:49] LABS: BUN < 5 mg/dl (9-23); ETHYL ALCOHOL < 3.0 mg/dl (<3)
[2023-08-30 00:56] LABS: BASO % 0.1 % (0.0-1.0); EOS % 0.1 % (1.0-4.0); HEMATOCRIT 41.7 % (37.0-47.0); LYMPH # 1.2 10*3/uL (1.3-4.4); LYMPH % 12.6 % (27.0-41.0); MEAN CELL VOLUME 93.1 fl (81.0-99.0); MEAN CORPUSCULAR HGB 32.4 pg (27.0-31.0); MEAN CORPUSCULAR HGB CONC 34.8 g/dl (33.0-37.0); MONO # 0.3 10*3/uL (0.1-1.0); MONO % 2.7 % (3.0-9.0); NEUT # 7.7 10*3/uL (2.3-7.9); NEUT % 84.3 % (47.0-73.0); PLATELET COUNT AUTOMATED 204 10*3/uL (130-400); RED BLOOD COUNT 4.48 10*6/uL (4.10-5.10); RED CELL DISTRI WIDTH 11.7 % (0-14.5); WHITE BLOOD COUNT 9.2 10*3/uL (4.8-10.8)
[2023-08-30 01:11] LABS: BILIRUBIN Negative (Negative); BLOOD Trace-Lysed (Negative); CLARITY Cloudy (Clear); COLOR Yellow (Yellow); GLUCOSE Negative (Negative); KETONE 2+ (Negative); LEUKO ESTERASE Trace (Negative); NITRITE Negative (Negative)
[2023-08-30 01:18] LABS: URINE AMPHETAMINES Negative (1000ng/ml); URINE BARBITURATES Negative (200ng/ml); URINE BENZODIAZEPINES Negative (200ng/ml); URINE CANNABINOIDS (THC) Positive (50ng/ml); URINE COCAINE Negative (300ng/ml); URINE METHADONE Positive (300ng/ml); URINE OPIATES Negative (300ng/ml); URINE PHENCYCLIDINE Negative (25ng/ml)
[2023-08-30 01:35] LABS: PH >= 9.0 (4.5-8.0)
[2023-08-30 01:44] LABS: EPITHELIAL CELLS TNTC
[2023-08-30 01:45] LABS: RBC 16-20 rbc/hpf (0-2)
[2023-08-30 01:47] LABS: BACTERIA 2+
[2023-08-30] MEDS ORDERED: CIPRO500 MG PO (02:50)
== END 2023-08-30 03:15 | disposition home or self-care (01) ==
LOC: ED 23:16
PROVIDERS: Internal Medicine
DX: N30.90 Cystitis, unspecified without hematuria (principal); R11.2 Nausea with vomiting, unspecified; Z79.899 Other long term (current) drug therapy; Z90.49 Acquired absence of other specified parts of digestive tract; Z98.890 Other specified postprocedural states; F17.200 Nicotine dependence, unspecified, uncomplicated

== ENCOUNTER 2025-04-22 13:35 | Emergency (ER) | payer OTHER ==
[~2025-04-22] VITALS: Ht 170.1 cm; Wt 54.4 kg
[2025-04-22] MEDS ORDERED: Ondansetron Hydrochloride 4 MG/2 ML VIAL IV ONE (15:00)
[2025-04-22] MEDS ORDERED: Ondansetron Hydrochloride 4 MG/2 ML VIAL IM ONE (15:15)
[2025-04-22] MEDS ORDERED: Ondansetron Hydrochloride 4 MG TAB SL ONE (15:45)
[2025-04-22] MEDS ORDERED: Metoclopramide Hydrochloride 10 MG/2 ML VIAL IM ONE (16:55)
[2025-04-22] MEDS ORDERED: ENEMA READY-TO133 ML R (17:37)
[2025-04-22] MEDS ORDERED: REGLAN10 M1 PO (17:37)
== END 2025-04-22 17:41 | disposition home or self-care (01) ==
LOC: ED 13:35
DX: K59.00 Constipation, unspecified (principal); R11.2 Nausea with vomiting, unspecified; R19.7 Diarrhea, unspecified; Z79.899 Other long term (current) drug therapy; Z90.49 Acquired absence of other specified parts of digestive tract; Z87.891 Personal history of nicotine dependence

== ENCOUNTER → 2025-06-12 | Outpatient (CLI) | payer OTHER ==
[~2025-06-12] MED LIST changes: +ENEMA READY-TO133 ML R; +REGLAN10 M1 PO
[2025-06-12 17:16] LABS: MEAN CELL VOLUME 93.2 fl (81.0-99.0); MEAN CORPUSCULAR HGB 32.0 pg (27.0-31.0); MEAN PLATELET VOLUME 9.9 fl (9.6-12.3); NUCLEATED RED BLOOD CELL 0.0 % (0.0-0.0); NUCLEATED RED BLOOD CELL 0.0 10*3/uL (0.0-0.0); PLATELET COUNT AUTOMATED 274.0 10*3/uL (130-400); RED CELL DISTRI WIDTH 11.5 % (0-14.5)
[2025-06-12 17:57] LABS: VITAMIN D, 25-HYDROXY 18.3 ng/mL (30-100)
[2025-06-12 19:15] LABS: BUN 6 mg/dl (9-23); FREE T4 0.90 ng/dl (0.89-1.76); LDL CHOLESTEROL 123 mg/dL (9-159); SGPT/ALT 8 U/L (5-49)
== END | disposition home or self-care (01) ==
LOC: LAB 16:45
PROVIDERS: ATTEND Family Medicine
DX: R10.9 Unspecified abdominal pain (principal); E55.9 Vitamin D deficiency, unspecified; R53.83 Other fatigue; M79.10 Myalgia, unspecified site; R63.4 Abnormal weight loss; Z79.899 Other long term (current) drug therapy